=== PATIENT | male | born 1970 | race Hispanic/Latino ===

== ENCOUNTER 2024-11-05 10:15 | Emergency (ER) | payer SELFPAY ==
[~2024-11-05] VITALS: Ht 170.2 cm; Wt 96.6 kg
[2024-11-05 10:19] VITALS: BP 116/83; PULSE 65; TEMP 97.2
[2024-11-05] MEDS ORDERED: CIPR7.5D7 OTIC (10:23)
--- NOTE | 2024-11-05 10:24 | ERN ---
General Chief Complaint: Earache Stated Complaint: EAR PAIN Time Seen by MD: 10:16 History of Present Illness Initial Comments Otherwise healthy 54-year-old presents for right ear pain. It has been present for a week or so. He reports some drainage. No fevers. No sore throat no cough congestion. There is some tenderness of the tragus with touching. ROS Dictation CONSTITUTIONAL: No chills, no fever, no weakness, no diaphoresis, no malaise. HEAD/FACE: No signs of trauma. EENT: Right ear pain RESPIRATORY: No cough, no orthopnea, no SOB, no stridor, no wheezing. CARDIOVASCULAR: No chest pain, no edema, no palpitations, no syncope. GASTROINTESTINAL/ABDOMINAL: No abdominal pain, no constipation, no diarrhea, no nausea, no vomiting. GENITOURINARY: No abnormal discharge, no dysuria, no frequent urination, no hematuria. No complaints of pain in the genitals. MUSCULOSKELETAL: No back pain, no gout, no joint pain, no joint swelling, no muscle pain, no muscle stiffness, no neck pain. INTEGUMENTARY: No change in color, no change in hair/nails, no dryness, no lesion, no lumps, no rash. NEUROLOGICAL/PSYCH: No anxiety, not depressed, no emotional problem, no headache, no numbness, no pre-existing deficit, no history of seizures, no tremors, no weakness. HEMATOLOGIC/LYMPHATIC: Not anemic, no history of blood clots, no apparent bleeding, no bruising, glands not swollen. All Systems Negative, Except as Noted. Physical Exam Physical Exam Dictation VITAL SIGNS: Reviewed. GENERAL APPEARANCE: Alert, oriented x3, no acute distress HEAD AND FACE: Non-traumatic. EYES: PERRL, pink conjunctivas, eyelid no trauma, anterior chamber clear. EARS: Right otitis externa, TMs clear NOSE: No discharge, no bleeding. OROPHARYNX: Mouth normal, teeth no caries, tongue pink. Pharynx clear, no erythema. Tonsils no exudates, no abscesses noted. Mucous membrane moist. NECK: Supple, non-tender, no thyromegaly, no masses, no JVD, no bruits. BREAST: Deferred. CHEST: No tenderness, no crepitus, no paradoxical movement, no retractions. LUNGS: Clear, well-ventilated, symmetric, no rales, no wheezing, no rhonchi, no stridor, good breath sounds bilaterally. HEART: Regular rate, regular rhythm, no murmur, no gallops. VASCULAR: No peripheral edema. ABDOMEN: Soft, positive bowel sounds, nondistended, no guarding, nontender, no rebound, no masses no hepatomegaly, no splenomegaly, no Bañuelos's sign, no hernias. RECTAL: Deferred. GENITAL: Deferred. NEUROLOGICAL: Normal speech, gross motor function intact, gross sensory function intact. MUSCULOSKELETAL: Neck nontender, full range of motion, back nontender, full range of motion. EXTREMITIES: Nontender, full range of motion. SKIN: Color pink, dry, no turgor, no rash, no lacerations, no abrasions, no contusions. LYMPHATICS: Deferred. MDM CC: Right ear pain Historian: Patient Comorbidities: None No limitations by social determinants of health Differential diagnosis: OM, OE, mastoiditis, malignant OE, etc. No labs or imaging indicated Clinically he has not otitis externa, uncomplicated We will discharge with Ciprodex recommend NSAIDs as needed. DX & DISP Disposition: Discharge Departure Impression: Primary Impression: Otitis externa of right ear Condition: Stable Scripts Ciprofloxacin HCl/Dexameth (Ciproflox-Dexameth Otic Susp) 0.3 %-0.1 % Drops.susp 4 DROP OTIC TID for 7 Days, #7.5 ML 0 Refills Prov: AUSTIN SON DO 11/05/24 Additional Instructions: You have otitis externa, or swimmer's ear. Use the drops that I have prescribed. You can take 500 mg of naproxen twice per day or 800 mg of ibuprofen 3 times a day as needed for pain. Please follow up with your primary doctor in 3-5 days for re-evaluation. AUSTIN SON DO Nov 05, 2024 10:23
== END 2024-11-05 10:28 | disposition home or self-care (01) ==
LOC: EDH 10:15
DX: H60.91 Unspecified otitis externa, right ear (principal)
CPT/HCPCS: 99283

== ENCOUNTER 2024-11-06 14:09 | Emergency (ER) | payer SELFPAY ==
[~2024-11-06] VITALS: Ht 167.6 cm; Wt 96.2 kg
[~2024-11-06 14:09] MED LIST: CIPR7.5D7 OTIC
--- NOTE | 2024-11-06 14:38 | ERN ---
ED Note History of Present Illness Stated Complaint: HEADACHE AND RIGHT EAR ACHE Chief Complaint: Earache Time Seen by MD: 14:33 Dictation: Patient is a 54-year-old male who presents to the ED for right ear pain. Patient was here yesterday for treatment of otitis externa and was given ciprofloxacin/dexamethasone ear drops. Patient states he had a headache after using the drops and felt like his ear pain worsened. Patient denies any fevers, chills, pain elsewhere. No sore throat, difficulty swallowing, cough, or congestion. Allergies: Coded Allergies: No Known Drug Allergies (Unverified Allergy, Unknown, 11/05/24) Home Meds Active Scripts Ciprofloxacin HCl/Dexameth (Ciproflox-Dexameth Otic Susp) 0.3 %-0.1 % Drops.susp, 4 DROP OTIC TID for 7 Days, #7.5 ML 0 Refills Prov:AUSTIN SON 11/05/24 Past Medical History Past Medical History: No Pertinent History Surgical History: Cholecystectomy Review of System Dictation Constitutional-no chills, weight loss/gain, fever Eyes-no injury, pain, redness and discharge ENT-no injury, swelling. Right ear pain Cardiovascular no chest pain, palpitations, edema Respiratory no shortness of breath, cough, wheezing Abdomen/GI-no abdominal pain, diarrhea, constipation, vomiting, nausea Back no injury and pain Genitourinary no injury, bleeding and discharge Musculoskeletal/extremities no injury, deformity Skin no rash, discoloration Neuro-no headache, weakness, numbness, tingling, seizures, tremors Psych-no suicidal ideation, homicidal ideation, hallucinations, depression, anxiety, memory loss Initial Vital Sign VS Vital Signs Date Time Temp Pulse Resp B/P (MAP) Pulse Ox O2 Delivery O2 Flow Rate FiO2 11/06/24 14:11 98.1 70 16 119/78 Room Air 0 11/06/24 15:04 97 21 Physical Exam Dictation VITAL SIGNS: Reviewed. GENERAL APPEARANCE: Alert, oriented x3, no acute distress, obese. HEAD AND FACE: Non-traumatic. EYES: PERRL, pink conjunctivas, eyelid no trauma, anterior chamber clear. EARS: Tragus tender to touch. Right otitis externa NOSE: No discharge, no bleeding. OROPHARYNX: Mouth normal, teeth no caries, tongue pink. Pharynx clear, no erythema. Tonsils no exudates, no abscesses noted. Mucous membrane moist. NECK: Supple, non-tender, no thyromegaly, no masses, no JVD, no bruits. BREAST: Deferred. CHEST: No tenderness, no crepitus, no paradoxical movement, no retractions. LUNGS: Clear, well-ventilated, symmetric, no rales, no wheezing, no rhonchi, no stridor, good breath sounds bilaterally. HEART: Regular rate, regular rhythm, no murmur, no gallops. VASCULAR: No peripheral edema. ABDOMEN: Soft, positive bowel sounds, nondistended, no guarding, nontender, no rebound, no masses no hepatomegaly, no splenomegaly, no Bañuelos's sign, no hernias. RECTAL: Swelling, lesion, possible pilonidal cyst GENITAL: Deferred. NEUROLOGICAL: Normal speech, gross motor function intact, gross sensory function intact. MUSCULOSKELETAL: Neck nontender, full range of motion, back nontender, full range of motion. EXTREMITIES: Nontender, full range of motion. SKIN: Color pink, dry, no turgor, no rash, no lacerations, no abrasions, no contusions. LYMPHATICS: Deferred. ED Course ED Course Orders Procedure Category Date Status Time Ketorolac PHA 11/06/24 Complete Tromethamine 30mg/Ml 15:00 Dexamethasone 4mg/Ml PHA 11/06/24 Complete 1ml Vial (Dexametha 15:00 Current Medications Medications (Trade) Dose Ordered Sig/Bruna Route PRN Reason Start Time Stop Time Status Last Admin Dose Admin Dexamethasone Sodium Phosphate (dexaMETHasone 4MG/ML 1ML VIAL) 4 mg ONCE ONCE IM 11/06/24 15:00 11/06/24 15:01 DC 11/06/24 14:59 Ketorolac Tromethamine (toRADol) 30 mg ONCE ONCE IM 11/06/24 15:00 11/06/24 15:01 DC 11/06/24 14:59 Vital Signs Date Time Temp Pulse Resp B/P (MAP) Pulse Ox O2 Delivery O2 Flow Rate FiO2 11/06/24 15:04 98.1 70 16 115/76 97 Room Air* 0 21 11/06/24 14:11 98.1 70 16 119/78 Room Air 0 Medical Decision Making MDM MDM INITIAL IMPRESSION Initial history and physical concerning for Right Otitis Externa. Contributing medical problems: I have reviewed the triage nursing notes and vital signs. Initial plan: Ear wick placement DATA REVIEW I have reviewed additional NN, repeat VS, and monitoring where indicated. Heart rate, blood pressure, and O2 saturation are acceptable. ED COURSE Interventions: Ear wick placed in right ear to better absorb Ciprodex Reassessment: Good placement, no drainage of solution DISPOSITION Final diagnostic impression: Right Otitis externa I discussed my findings, clinical impression and treatment recommendations with the patient. My final plan for disposition was made based upon -mild risk of complications and potential morbidity of the patient's condition. -Discussion with the patient regarding management options. Patient will be discharged with ear wick in place to better absorbed ear drops DX & DISP Disposition: Discharge Departure Impression: Primary Impression: Otitis externa of right ear Condition: Stable Additional Instructions: Continue Ciprodex ear drops as directed with ear wick in place. Keep the ear dry avoid swimming, showering, or submerging the affected ear in water until infection clears. Avoid inserting cotton dry swabs or other objects to clean t he ear canal. Take [id number] pain relievers, such as ibuprofen or acetaminophen, to help manage pain. Watch for signs of worsening infection such as pain, swelling, fever, or redness, or if the discharge increases, contact your doctor immediately. FOLLOW-UP WITH PRIMARY CARE PROVIDER IN 1 TO 2 DAYS. TAKE MEDICATIONS DIRECTED HERE IN THE EMERGENCY ROOM. OKAY TO CONTINUE HOME MEDICATIONS UNLESS OTHERWISE DISCUSSED DURING YOUR VISIT IN THE EMERGENCY ROOM TODAY. RETURN TO YOUR NEAREST EMERGENCY ROOM IF SYMPTOMS WORSEN OR IF THERE IS NO IMPROVEMENT. CALL 911 IF YOU NEED IMMEDIATE ASSISTANCE. TAKE TYLENOL [id number] NEEDED AND IF NO CONTRAINDICATIONS ARE PRESENT. INCREASE ORAL HYDRATION. A WOUND CULTURE OR URINE CULTURE WAS ORDERED HERE IN THE EMERGENCY ROOM DEPARTMENT PLEASE FOLLOW-UP WITH PRIMARY CARE PROVIDER AND ADVISE THEM TO GET REPEAT PORTS FROM OUR FACILITY. IF YOU HAD ANY GEORGE WRAP/SPLINTS THAT WERE APPLIED HERE, PLEASE DO NOT REMOVE THEM UNTIL YOU SEE YOUR PRIMARY CARE OR SPECIALTY. Referrals: SELF,REFERRAL (PCP) VICKY DEL REAL III, MD Time of Disposition: 14:43 I have reviewed I have reviewed the case I WAS PRESENT AND PARTICIPATED IN THE CARE OF THIS PATIENT ALONGSIDE WITH THE RESIDENT PHYSICIAN. I HAVE REVIEWED AND PERSONALLY MADE AND APPROVED THE MANAGEMENT PLAN THAT IS DOCUMENTED IN THE NOTE BY MYSELF WITH THE RESIDENT PHYSICIAN. I ACKNOWLEDGED FOR RESPONSIBILITY FOR THE PATIENT'S MANAGEMENT PLAN. I have examined patient SIRISHA PARKER MD Nov 06, 2024 14:38 SUSIE JAMES MD Nov 09, 2024 07:57
[2024-11-06] MEDS: dexaMETHasone SOD PHOSPHATE 4 MG/ML 1ML VIAL IM ONE (14:59)
[2024-11-06] MEDS: ketOROlac 30MG VIAL (30MG/ML) IM ONE (14:59)
[2024-11-06 15:04] VITALS: BP 115/76; PULSE 70; RESP 16; TEMP 98; O2SAT 97
== END 2024-11-06 15:29 | disposition home or self-care (01) ==
LOC: EDH 14:09
DX: H60.91 Unspecified otitis externa, right ear (principal); Z90.49 Acquired absence of other specified parts of digestive tract; Z79.899 Other long term (current) drug therapy
CPT/HCPCS: 99284; 96372 ×2; J1100; J1885